=== PATIENT | male | born 1995 | race Caucasian/White ===

== ENCOUNTER 2018-12-06 17:09 | Emergency (ER) | payer OTHER ==
[2018-12-06 17:23] VITALS: BP 139/62
--- NOTE | 2018-12-06 17:25 | ED Physician Documentation ---
History of Present Illness - Stated complaint Stated Complaint: RT ANKLE INJ - Chief complaint Chief Complaint: Trauma Ext - Additonal information Additional information: This is a 23-year-old male who denies past medical history who presents with right ankle pain. He was stepping off a plane and he inverted his ankle.He tried to walk off the pain, and he initially was able to bear weight on it, but the pain and swelling on his right lateral ankle has continued to worsen. He denies any numbness or tingling. Review of Systems Skin: denies: Laceration (s) Musculoskeletal: reports: Extremity pain PD PAST MEDICAL HISTORY - Past Medical History Past Medical History: No - Present Medications Home Medications: Ambulatory Orders Medication Instructions Recorded Confirmed Hydrocodone/Acetaminophen 1 - 2 each PO Q6H PRN #14 tablet 12/06/18 [Hydrocodon-Acetaminophen 5-325] - Allergies Allergies/Adverse Reactions: Allergies Allergy/AdvReac Type Severity Reaction Status Date / Time No Known Drug Allergies Allergy Verified 12/06/18 17:19 - Social History Does the pt have substance abuse?: No - Family History Family history: reports: Non contributory PD ED PE NORMAL - Vitals Vital signs reviewed: Yes - General General: Alert and oriented X 3, No acute distress - HEENT HEENT: PERRL - Cardiac Cardiac: Strong equal pulses - Respiratory Respiratory: No respiratory distress - Extremities Extremities: Other (Edema over the R lateral malleolus, there is tenderness palpation of this region. There is no tenderness over the proximal tibia and fibula, or the forefoot. No tenderness over the medial malleolus. Patient able to wiggle all toes, capillary refill is brisk, sensation intact light touch) - Neuro Neuro: Alert and oriented X 3 - Psych Psych: Normal mood, Normal affect Results - Vitals Vitals: Vital Signs - 24 hr 12/06/18 17:20 Temperature 36.8 C Heart Rate 80 Respiratory 16 Rate Blood Pressure 139/62 H O2 Saturation 98 Oxygen O2 Source Room air - Rads (name of study) XR ankle Radiology: Other (Oblique and essentially non-displaced fracture of the distal fibula) Procedures - Splint (location) Lower extremity right Type of splint: Short leg, Posterior, Stirrup Other: Patient tolerated well, No complications, Neurovascular intact, Crutches provided PD MEDICAL DECISION MAKING - ED course ED course: Patient presents with R ankle pain and swelling, his limb is neurovascularly intact. Tylenol, ibuprofen, then oxycodone given for pain. XR shows a fibular fracture at around the level of the syndesmosis, no tibial fracture seen. He was placed in a posterior short leg splint with stirrup and given crutches. I discussed that he is to be non-weight bearing until follow up with orthopedics. I discussed ortho follow up within 1 week, and discussed indications for return to the ED. He was prescribed hydrocodone and risks of narcotic medications discussed. Patient agreed with the plan and was discharged home. Departure - Departure Disposition: Home, Self Care Clinical Impression: Ankle fracture, lateral malleolus, closed Qualifiers: Encounter type: initial encounter Fracture alignment: nondisplaced Laterality: right Qualified Code(s): S82.64XA - Nondisplaced fracture of lateral malleolus of right fibula, initial encounter for closed fracture Condition: Good Instructions: ED Fx Ankle Lateral Malleolus Follow-Up: Manish Levin MD [Provider Admit Priv/Credential] - Within 1 week Prescriptions: Hydrocodone/Acetaminophen [Hydrocodon-Acetaminophen 5-325] 1 - 2 each PO Q6H PRN #14 tablet PRN Reason: pain Comments: You have a fracture of your fibula, please use the crutches and do not bear weight on the ankle until you are able to follow-up with an orthopedist. I recommend following up within the next week. Try to control your pain using nonnarcotic medications such as ibuprofen and Tylenol, if these are not effective you may use the hydrocodone prescribed. If you are having greatly increasing pain, or other concerning symptoms, please return to the emergency department Do not drink alcohol or drive while taking narcotic pain medication. Note that many narcotic pain relievers also contain Tylenol/acetaminophen. Please ensure that your total dose of acetaminophen from all sources does not exceed 3 g (3000 mg) per day. You may get constipated while on this medication. Take a stool softener such as Colace twice a day while you are on it. Also add an [id number] laxative such as senna or MiraLAX on any day that you do not have a bowel movement. If you received a narcotic pain medication or sedative while in the emergency department, do not drive for the next 24 hours. Forms: Activity restrictions Discharge Date/Time: 12/06/18 19:36
[2018-12-06] MEDS ORDERED: IBUPROFEN 600 MG TABLET PO STA (17:29)
[2018-12-06] MEDS ORDERED: ACETAMINOPHEN 325 MG TABLET PO STA (17:29)
[2018-12-06] MEDS ORDERED: oxyCODONE 5 MG TABLET PO STA ×2 (18:19→18:34)
[2018-12-06] MEDS ORDERED: oxyCODONE 5 MG TABLET PO ONE (18:59)
--- NOTE | 2018-12-07 09:21 | XRAY Report ---
Reason: Ankle inversion injury, Lat mal pain Procedure Date: 12/06/2018 Accession Number: [id number] / [id number] Procedure: XR - Ankle 3 View RT CPT Code: FULL RESULT: EXAM: RIGHT ANKLE RADIOGRAPHY EXAM DATE: 12/06/2018 05:45 PM. CLINICAL HISTORY: Ankle inversion injury, Lat mal pain. COMPARISON: None. TECHNIQUE: 3 views. FINDINGS: Bones: Complete oblique fracture of the distal fibular metadiaphysis with minimal displacement and near anatomic alignment. Joints: No subluxations. The ankle mortise is normally aligned. Soft Tissues: Significant lateral soft tissue swelling. IMPRESSION: 1. Minimally displaced fracture of the distal fibular metadiaphysis with near-anatomic alignment. RADIA
== END 2018-12-06 19:36 | disposition home or self-care (01) ==
LOC: ED 17:09
DX: S82.64XA Nondisplaced fracture of lateral malleolus of right fibula, initial encounter for closed fracture (principal); X50.1XXA Overexertion from prolonged static or awkward postures, initial encounter; Y92.813 Airplane as the place of occurrence of the external cause
CPT/HCPCS: 29515; 73610; 99283; A9270

== ENCOUNTER 2018-12-14 05:36 | Day surgery (SDC) | payer OTHER ==
[2018-12-14] MEDS ORDERED: PROPOFOL 200 MG/20 ML VIAL IVP ONE (05:37)
[2018-12-14] MEDS ORDERED: DEXAMETHASONE 4 MG/ML VIAL IVP ONE (05:37)
[2018-12-14] MEDS ORDERED: fentaNYL 100 MCG/2 ML VIAL IVP ONE (05:37)
[2018-12-14] MEDS ORDERED: MIDAZOLAM 2 MG/2 ML VIAL IVP ONE (05:37)
[2018-12-14] MEDS ORDERED: KETOROLAC 30 MG/ML VIAL IVP ONE (05:37)
[2018-12-14] MEDS ORDERED: CEFAZOLIN SODIUM IN 0.9 % NACL 2 GM/100 ML BAG IV ONE (06:16)
[2018-12-14] MEDS ORDERED: LACTATED RINGERS 1,000 ML IV ONE ×2 (06:35→07:50)
--- NOTE | 2018-12-14 06:40 | ANESTHESIA ---
Pre-Anesthesia VS, & Labs - Diagnosis R ankle fx - Procedure R ankle ORIF Vital Signs: Last Vital Signs Temp 36.2 C L 12/14/18 06:10 Pulse 88 12/14/18 06:10 Resp 18 12/14/18 06:10 BP 138/79 H 12/14/18 06:10 Pulse Ox 97 12/14/18 06:10 Height 5 ft 11 in Weight (kg) 84.82 kg Body Mass Index 25.7 - NPO >8 hours Home Medications and Allergies Home Medications: Ambulatory Orders Acetaminophen [Tylenol] 650 mg PO Q6H PRN 12/13/18 Acetaminophen [Tylenol] 650 mg PO Q6H PRN 12/13/18 Allergies/Adverse Reactions: Allergies Allergy/AdvReac Type Severity Reaction Status Date / Time No Known Drug Allergies Allergy Verified 12/13/18 14:23 Anes History & Medical History - Anesthetic History Anesthesia Complications: reports: No previous complications Family history of Anesthesia Complications: Denies Family history of Malignant Hyperthermia: Denies - Medical History Pulmonary: reports: None Gastrointestinal: reports: None Urinary: reports: None Musculoskeletal: reports: Other Endocrine/Autoimmune: reports: None Skin: reports: None Smoking Status: Current every day smoker Exam General: Alert, Oriented x3, Cooperative Dental: WNL Mouth Openin Fingerbreadth Neck Mobility: Normal Mallampati classification: II Thyromental Distance: 4-6 cm Respiratory: Lungs clear, Normal breath sounds Cardiovascular: Regular rate Mental/Cognitive Status: Alert/Oriented X3, Normal for patient Cognitive Status: Within normal limits Plan Anesthesia Type: General Consent for Procedure(s) Verified and Reviewed: Yes Code Status: Attempt Resuscitation ASA classification: 2-Mild systemic disease Is this case an emergency?: No
[2018-12-14] MEDS ORDERED: BUPIVACAINE 0.25% PF 30 ML VIAL ONE (06:52)
[2018-12-14] MEDS ORDERED: BUPIVACAINE 0.25% PF 30 ML VIAL SUBQ ONE ×2 (07:11)
--- NOTE | 2018-12-14 08:28 | OPERATIVE REPORT ---
Operative Report - Other Other Information/Narrative: Date of Surgery: 14 December 2018 Pre-Op Diagnosis: Right ankle fracture Procedure: Open reduction internal fixation of right ankle fracture Postop Diagnosis: Same Primary Surgeon: Sarabjit St Secondary Surgeon: None Complications: None Tourniquet Time: 43 minutes at 250 mmHg EBL: 5 cc Implants: Synthes one third tubular plate with associated screws Postoperative Protocol: Weightbearing in boot at 2 weeks. At 6 weeks boot can be removed and activity advanced as long as the fracture is healed.. Indication For Surgery: 23-year-old male sustained an unstable and steps. He was evaluated in the clinic and indicated for operative management to restore his length alignment rotation and allow for rapid healing.. The risks, benefits, and alternatives were discussed. Risks include pain, bleeding, infection, damage to nearby structures, numbness, lack of symptom relief, implant complications, nonunion, need for further surgery, DVT, PE, stroke, and . Written consent was obtained. Procedure in Detail: The patient was met in the pre-operative hold area on the day of the procedure. The operative extremity was signed and questions were answered. The patient was brought to the operating room and a general anesthetic was administered. Supine position was used and all bony prominences were padded. AP and lateral x-rays of the contralateral normal then were obtained for comparison, stress views of the contralateral limb were obtained for comparison standard prepping and draping was performed. A time out confirmed patient identification, laterality, procedure, allergies, antibiotics, and images. An Esmarch was used to exsanguinate the limb and the tourniquet was elevated to 250 mmHg. A direct lateral approach was made to the fibula with scissor dissection proximally and sharp dissection distally. The fracture was identified and interposed hematoma and periosteum was removed. The fracture was irrigated. A reduction was performed and held with a clamp. A 3 5 lag screw was placed with excellent fixation. A lateral plate was then applied and fixed in place under fluoroscopic guidance. All implants were safe. Stress external rotation views show the syndesmosis to be stable and the fibula felt stable in my hands. Final images were then taken. The wounds were irrigated copiously and closed in a layered fashion with 0 Vicryl deep 2-0 Vicryl in the dermis and running nylon in the skin. 20 cc of quarter percent Marcaine were placed. A sterile dressing and a splint was applied. He was transferred to the recovery room.
[2018-12-14] MEDS ORDERED: ONDANSETRON 4 MG/2 ML VIAL IVP PRN (08:29)
[2018-12-14] MEDS ORDERED: oxyCODONE 5 MG TABLET PO PRN (08:29)
[2018-12-14] MEDS ORDERED: HYDROmorphone 0.5 MG/0.5 ML SYRINGE ONE ×2 (09:04→09:18)
[2018-12-14] MEDS ORDERED: ROPIVACAINE 0.5% PF 20 ML VIAL ONE (09:34)
[2018-12-14 10:40] VITALS: BP 123/78
--- NOTE | 2018-12-14 11:00 | XRAY Report ---
Reason: OR fractured right ankle Procedure Date: 12/14/2018 Accession Number: [id number] / [id number] Procedure: FL - OR C-Arm Procedure CPT Code: Final Report FULL RESULT: EXAM: FLUOROSCOPIC GUIDANCE EXAM DATE: 12/14/2018 10:37 AM. CLINICAL HISTORY: Fractured right ankle. COMPARISON: OR C-ARM PROCEDURE 12/14/2018 7:36 AM. FINDINGS: Total of 4 frontal views is submitted. There are 2 views appearing nearly identical labeled left and demonstrate an AP view of normal osseous ankle anatomy. 2 AP views of the right ankle demonstrate a lateral plate and screw construct secured by 4 interlocking screws spanning the distal fibula which also contains a interfragmentary screw. The ankle mortise appears symmetric bilaterally. The repaired fracture is not clearly visible. IMPRESSION: Fluoroscopic guidance provided for right ankle ORIF. Total fluoroscopy time: 0.2 minutes. Number of images: 4. RADIA
== END 2018-12-14 05:37 | disposition home or self-care (01) ==
LOC: SDS 05:36
PROVIDERS: ATTEND Orthopaedic Surgery
PROC: 0QSJ04Z Reposition Right Fibula with Internal Fixation Device, Open Approach (ICD-10-PCS; principal; 2018-12-14 07:15)
DX: S82.831A Other fracture of upper and lower end of right fibula, initial encounter for closed fracture (principal); F17.210 Nicotine dependence, cigarettes, uncomplicated